=== PATIENT | female | born 1990 ===

== ENCOUNTER 2023-05-17 18:39 | Emergency (ER) | payer OTHER ==
[2023-05-17 19:31] LABS: Hematocrit 18.9 % (36.0-45.0); Lymphocytes % 17.6 % (15.3-44.8); MCV 105.3 fL (80-100); MPV 8.2 fL (7.6-11.3); Platelets 53 thou/uL (152-406)
[2023-05-17] MEDS ORDERED: NA CHLORIDE 0.9% 1,000 ML ONE (19:34)
[2023-05-17] MEDS ORDERED: ACETAMINOPHEN 500 MG TAB ONE (19:34)
[2023-05-17] MEDS ORDERED: HYDROMORPHONE HCL 1 MG/ML INJ ONE (19:34)
[2023-05-17 20:04] LABS: Albumin 3.6 g/dL (3.4-5.0); Bilirubin Direct 0.3 mg/dL (0-0.2); Bilirubin Indirect, Calculated 1.3 mg/dL (0.2-0.8); Bilirubin Total 1.6 mg/dL (0.2-1.0); Protein, Total 7.1 g/dL (6.4-8.2); Troponin High Sensitivity 12.2 pg/mL (<58.9)
[2023-05-17 20:16] LABS: Anisocytosis 3+; Blood Morphology Comment NOTED (NOT SEEN); Platelet Estimate DECR
[2023-05-17 20:17] LABS: Poikilocytosis 3+
--- NOTE | 2023-05-17 20:47 | RAD REPORT ---
EXAM DESCRIPTION: Emil Single View05/17/2023 8:19 pm CLINICAL HISTORY: CHEST PAIN COMPARISON: No comparisons TECHNIQUE: Portable AP view of the chest. FINDINGS: The lungs are clear. Right basilar atelectasis. No pneumothorax or effusion. The cardiome diastinal contours are unremarkable. IMPRESSION: No acute cardiopulmonary process.
--- NOTE | 2023-05-17 21:02 | ER ---
Nurse's Notes [facility] Name: Loi Grubbs Age: 32 yrs Sex: Female : 1990 Arrival Date: 05/17/2023 Time: 18:39 Bed 9 Private MD: Diagnosis: Other sickle-cell disorders with crisis Presentation: 05/17 18:41 Chief complaint: EMS states: pt was at gym, started having chest pain, feels like a iw Sickle Cell flare up. Coronavirus screen: At this time, the client does not indicate any symptoms associated with coronavirus-19. Ebola Screen: Patient negative for fever greater than or equal to 101.5 degrees Fahrenheit, and additional compatible Ebola Virus Disease symptoms Patient denies exposure to infectious person. Patient denies travel to an Ebola-affected area in the 21 days before illness onset. No symptoms or risks identified at this time. Initial Sepsis Screen: Does the patient meet any 2 criteria? No. Patient's initial sepsis screen is negative. Does the patient have a suspected source of infection? No. Patient's initial sepsis screen is negative. Risk Assessment: Do you want to hurt yourself or someone else? Patient reports no desire to harm self or others. Onset of symptoms was May 17, 2023. 18:41 Method Of Arrival: EMS: [facility] iw 18:41 Acuity: YANG 3 iw 18:42 Care prior to arrival: Medication(s) given: zofran 4 mg, toradol 15 mg IV initiated. 22 iw GA, in the left antecubital area. Historical: - Allergies: 18:42 No Known Allergies; iw - Immunization history:: Adult Immunizations unknown. - Social history:: Smoking status: unknown. Screenin:15 [facility] ED Fall Risk Assessment (Adult) Score/Fall Risk Level 0 - 2 = Low Risk. Abuse eh3 screen: Denies threats or abuse. Denies injuries from another. Nutritional screening: No deficits noted. Tuberculosis screening: No symptoms or risk factors identified. Assessment: 19:15 General: Appears in no apparent distress. uncomfortable, Behavior is calm, cooperative, eh3 appropriate for age. Pain: Complains of pain in generalized. Neuro: Level of Consciousness is awake, alert, obeys commands, Oriented to person, place, time, situation. Cardiovascular: Capillary refill < 3 seconds Patient's skin is warm and dry. Respiratory: Airway is patent Respiratory effort is even, unlabored, Respiratory pattern is regular, symmetrical. GI: Abdomen is flat, non-distended. Derm: Skin is pink, warm \T\ dry. Musculoskeletal: Circulation, motion, and sensation intact. 20:15 Reassessment: Patient appears in no apparent distress at this time. Patient and/or eh3 family updated on plan of care and expected duration. Pain level reassessed. Patient is alert, oriented x 3, equal unlabored respirations, skin warm/dry/pink. Patient states feeling better. Patient states symptoms have improved. Vital Signs: 18:41 BP 128 / 65; Pulse 78; Resp 18; Temp 98; Pulse Ox 97% on R/A; iw 19:15 BP 118 / 66; Pulse 76; Resp 18; Pulse Ox 95% on R/A; eh3 20:15 BP 127 / 54; Pulse 74; Resp 19; Pulse Ox 96% on R/A; eh3 ED Course: 18:40 Patient arrived in ED. iw 18:41 Dalton Steiner MD is Attending Physician. rt 18:42 Triage completed. iw 18:43 Arm band placed on. iw 19:10 Basic Metabolic Panel Sent. cm10 19:10 CBC with Diff Sent. cm10 19:10 LFT's Sent. cm10 19:10 Troponin HS Sent. cm10 19:12 Sharri Lobo, RN is Primary Nurse. eh3 19:15 Patient has correct armband on for positive identification. Bed in low position. Call eh3 light in reach. Side rails up X2. Adult w/ patient. Provided Education on: Use of call [place]. Client placed on continuous cardiac and pulse oximetry monitoring. NIBP monitoring applied. 19:36 XRAY Chest (1 view) In Process Unspecified. EDMS 21:16 No provider procedures requiring assistance completed. IV discontinued, intact, eh3 bleeding controlled, No redness/swelling at site. Pressure dressing applied. Administered Medications: 19:25 Drug: HYDROmorphone IVP 1 mg IVP once Route: IVP; Site: left antecubital; eh3 20:00 Follow up: Response: No adverse reaction; Pain is decreased; RASS: Alert and Calm (0) eh3 19:25 Drug: Acetaminophen PO 1000 mg PO once Route: PO; eh3 20:00 Follow up: Response: No adverse reaction 3 19:25 Drug: NS 0.9% IV 1000 ml IV at 1 bolus Per protocol; 1000 mL bolus Route: IV; Rate: 1 eh3 bolus; Site: left antecubital; 21:16 Follow up: IV Status: Completed infusion; IV Intake: 1000ml eh3 Medication: 21:16 VIS not applicable for this client. eh3 Intake: 21:16 IV: 1000ml; Total: 1000ml. 3 Outcome: 21:01 Discharge ordered by . rt 21:16 Discharged to home ambulatory, with friend, [facility] 21:16 Condition: stable 21:16 Discharge instructions given to patient, Instructed on discharge instructions, follow up and referral plans. Demonstrated understanding of instructions, follow-up care, 21:16 Patient left the ED. 3 Signatures: Dispatcher [employer] Katherine Paz, RN CYNTHIA iw Sharri Lobo RN RN eh3 Dalton Steiner MD MD rt Martinez, Clarissa, RN RN cm10
--- NOTE | 2023-05-17 21:02 | EDPHYS ---
Physician Documentation [facility] Name: Loi Grubbs Age: 32 yrs Sex: Female : 1990 Arrival Date: 05/17/2023 Time: 18:39 Bed 9 Private MD: ED Physician Dalton Steiner HPI: 05/17 19:32 This 32 yrs old Female presents to ER via EMS with complaints of Sickle Cell Crisis. rt 19:32 Patient presents to the ED with reported sickle cell pain. This occurred about 1 hour rt prior to arrival while he was working out. He has reported chest pain, shortness of breath. He does state that he has had a history of acute chest syndrome in the past, ever, this does feel different. Also reports pain to his back. This is typical of prior episodes of sickle cell pain crisis. He received a liter of fluids and 50 mg of Toradol prior to arrival. He denies other acute complaints at this time, symptoms are moderate severity, no other aggravating or alleviating factors.. Historical: - Allergies: 18:42 No Known Allergies; iw - Immunization history:: Adult Immunizations unknown. - Social history:: Smoking status: unknown. ROS: 19:34 Constitutional: Negative for fever, chills, and weight loss, Abdomen/GI: Negative for rt abdominal pain, nausea, vomiting, diarrhea, and constipation, MS/Extremity: Negative for injury and deformity, Skin: Negative for injury, rash, and discoloration, Neuro: Negative for headache, weakness, numbness, tingling, and seizure, Psych: Negative for depression, anxiety, suicide ideation, homicidal ideation, and hallucinations, 19:34 Cardiovascular: Positive for chest pain, Negative for palpitations, 19:34 Respiratory: Positive for shortness of breath, Negative for cough, 19:34 Back: Positive for pain at rest, Negative for injury or acute deformity, Exam: 19:34 Constitutional: This is a well developed, well nourished patient who is awake, alert, rt and in no acute distress. Head/Face: Normocephalic, atraumatic. Chest/axilla: Normal chest wall appearance and motion. Nontender with no deformity. No lesions are appreciated. Cardiovascular: Regular rate and rhythm with a normal S1 and S2. No gallops, murmurs, or rubs. Normal PMI, no JVD. No pulse deficits. Respiratory: Lungs have equal breath sounds bilaterally, clear to auscultation and percussion. No rales, rhonchi or wheezes noted. No increased work of breathing, no retractions or nasal flaring. Abdomen/GI: Soft, non-tender, with normal bowel sounds. No distension or tympany. No guarding or rebound. No evidence of tenderness throughout. Back: No spinal tenderness. No costovertebral tenderness. Full range of motion. Skin: Warm, dry with normal turgor. Normal color with no rashes, no lesions, and no evidence of cellulitis. MS/ Extremity: Pulses equal, no cyanosis. Neurovascular intact. Full, normal range of motion. Neuro: Awake and alert, GCS 15, oriented to person, place, time, and situation. Cranial nerves II-XII grossly intact. Motor strength 5/5 in all extremities. Sensory grossly intact. Cerebellar exam normal. Normal gait. Psych: Awake, alert, with orientation to person, place and time. Behavior, mood, and affect are within normal limits. 19:34 ECG was reviewed by the Attending Physician. Vital Signs: 18:41 BP 128 / 65; Pulse 78; Resp 18; Temp 98; Pulse Ox 97% on R/A; iw 19:15 BP 118 / 66; Pulse 76; Resp 18; Pulse Ox 95% on R/A; eh3 20:15 BP 127 / 54; Pulse 74; Resp 19; Pulse Ox 96% on R/A; eh3 MDM: 18:42 Patient medically screened. rt 21:50 Differential Diagnosis Sickle cell vaso-occlusive crisis, anemia, electrode rt disturbance, acute chest syndrome. Data reviewed: vital signs, nurses notes, lab test result(s), EKG, radiologic studies. Consideration of Admission/Observation Escalation of care including admission/observation considered. Discussed admission with the patient for anemia, thrombocytopenia. Patient states that he feels much better, stronger wishes to go home. He states that hemoglobin of 6.4 is usual for him when he does have a vaso-occlusive crisis his platelets are at baseline. Patient does have decision-making capacity. 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 Independent interpretation of the following test(s) in the Emergency Department X-Ray: My interpretation is No consolidation seen on interpretation of x-ray images. Care significantly affected by the following chronic conditions: Sickle cell disease. Counseling: I had a detailed discussion with the patient and/or guardian regarding the historical points, exam findings, and any diagnostic results supporting the discharge/admit diagnosis, lab results, radiology results, the need for outpatient follow up. Response to treatment: the patient's symptoms have markedly improved after treatment. 05/17 18:48 Order name: Basic Metabolic Panel; Complete Time: 20:30 rt 05/17 18:48 Order name: CBC with Diff; Complete Time: 20:30 rt 05/17 18:48 Order name: LFT's; Complete Time: 20:30 rt 05/17 18:48 Order name: Troponin HS; Complete Time: 20:30 rt 05/17 18:48 Order name: Retic Count; Complete Time: 20:30 rt 05/17 18:48 Order name: LDH; Complete Time: 20:30 rt 05/17 19:41 Order name: Manual Differential; Complete Time: 20:30 EDMS 05/17 18:48 Order name: XRAY Chest (1 view); Complete Time: 21:00 rt 05/17 18:48 Order name: EKG; Complete Time: 18:49 rt 05/17 18:48 Order name: Cardiac monitoring; Complete Time: 19:10 rt 05/17 18:48 Order name: EKG - Nurse/Tech; Complete Time: 19:00 rt 05/17 18:48 Order name: IV Saline Lock; Complete Time: 19:09 rt 05/17 18:48 Order name: Labs collected and sent; Complete Time: 19:09 rt 05/17 18:48 Order name: O2 Per Protocol; Complete Time: 19:38 rt 05/17 18:48 Order name: O2 Sat Monitoring; Complete Time: 19:38 rt EC:34 Rate is 67 beats/min. Rhythm is regular, Normal Sinus Rhythm with No ectopy. QRS Winston rt is Normal. MA interval is normal. QRS interval is normal. QT interval is normal. No Q waves. T waves are Normal. No ST changes noted. Interpreted by me. Administered Medications: 19:25 Drug: HYDROmorphone IVP 1 mg IVP once Route: IVP; Site: left antecubital; eh3 20:00 Follow up: Response: No adverse reaction; Pain is decreased; RASS: Alert and Calm (0) eh3 19:25 Drug: Acetaminophen PO 1000 mg PO once Route: PO; eh3 20:00 Follow up: Response: No adverse reaction [facility] 19:25 Drug: NS 0.9% IV 1000 ml IV at 1 bolus Per protocol; 1000 mL bolus Route: IV; Rate: 1 eh3 bolus; Site: left antecubital; 21:16 Follow up: IV Status: Completed infusion; IV Intake: 1000ml eh3 Disposition Summary: 05/17/23 21:01 Discharge Ordered Notes: Location: Home rt Problem: an acute exacerbation rt Symptoms: have improved rt Condition: Stable rt Diagnosis - Other sickle-cell disorders with crisis rt Followup: rt - With: Private Physician - When: 2 - 3 days - Reason: Discharge Instructions: - Discharge Summary Sheet rt - Sickle Cell Anemia, Adult rt Forms: - Medication Reconciliation Form rt - Thank You Letter rt - Antibiotic Education rt - Prescription Opioid Use rt - Patient Portal Instructions rt - Leadership Thank You Letter rt Signatures: Dispatcher [employer] Katherine Paz RN RN Sharri Lobo RN RN [facility] Dalton Steiner MD MD rt
[2023-05-17 23:30] VITALS: TEMP 98
[2023-05-17 23:33] VITALS: BP 127/54; O2SAT 96
--- NOTE | 2023-05-18 11:41 | EKG ---
Test Date: 2023-05-17 Test Time: 18:58:54 [employer]ane Service Technician: MAC MEASUREMENT RESULTS: Intervals: Rate: 67 ID: [id number] QRSD: 86 QT: 384 QTc: 405 [place]: P: 78 ID: [id number] QRS: 56 T: 45 INTERPRETIVE STATEMENTS: Normal sinus rhythm Normal ECG No previous ECG available for comparison Electronically Signed On 05-18-23 11:39:36 CDT by Bernardino Peck
== END 2023-05-17 21:16 | disposition home or self-care (01) ==
LOC: ER 18:39
DX: D57.819 Other sickle-cell disorders with crisis, unspecified (principal)
CPT/HCPCS: 96361; 93005; 85025; 80048; 36415; 83615; 85044; 80076; 84484; 71045; 96374; 99284; J1170; J7030